=== PATIENT | male | born 1995 | race Two or more races ===

== ENCOUNTER 2024-07-17 14:00 | Emergency (ER) | payer SELFPAY ==
[~2024-07-17] VITALS: Ht 182.9 cm; Wt 78.1 kg
[2024-07-17 16:02] VITALS: BP 107/62; PULSE 88; RESP 16; TEMP 99.3; O2SAT 98
[2024-07-17] MEDS ORDERED: ERY05OO OP (16:07)
[2024-07-17] MEDS ORDERED: AUG875T PO (16:07)
== END 2024-07-17 16:07 | disposition home or self-care (01) ==
LOC: ER 14:00
DX: H00.014 Hordeolum externum left upper eyelid (principal)